=== PATIENT | female | born 1970 | race Caucasian/White ===

== ENCOUNTER 2021-05-14 23:30 | Emergency (ER) | payer BC, OTHER ==
[~2021-05-14] VITALS: Ht 160 cm; Wt 81.6 kg
[2021-05-14 23:40] VITALS: BP 158/93
--- NOTE | 2021-05-14 23:43 | NUR ---
TO LOBBY A/W BED AMBULATORY
--- NOTE | 2021-05-15 00:33 | NUR ---
PT AMBULATORY TO BED #11
--- NOTE | 2021-05-15 00:33 | NUR ---
50 YO F BIB SELF FOR C/O L LOWER EXT PAIN. PT STATES SHE TOOK A MISSTEP AND WAS ABLE TO CATCH HERSELF DOWN THE STAIRS WITH HER R ARM. PT C/O PAIN TO R ARM AND L LOWER EXTREMITY, DESCRIBES THROBBING PAIN 04/30. PT GUARDING L LEG, UNABLE TO BEAR WEIGHT @ THIS TIME. ERMD @ BEDSIDE HX: DENIES AX: CLINDAMYCIN LMP: 05/12
[2021-05-15] MEDS ORDERED: IBUP-2213 PO (03:06)
== END 2021-05-15 03:25 | disposition home or self-care (01) ==
LOC: MED 23:30
DX: S46.811A Strain of other muscles, fascia and tendons at shoulder and upper arm level, right arm, initial encounter (principal); S93.602A Unspecified sprain of left foot, initial encounter; W18.31XA Fall on same level due to stepping on an object, initial encounter; Y93.89 Activity, other specified; Y92.89 Other specified places as the place of occurrence of the external cause; Y99.8 Other external cause status
CPT/HCPCS: 73030; 73610; 73630; 99284; Q0092; 99282